=== PATIENT | male | born 1955 | race Two or more races ===

== ENCOUNTER 2024-01-15 07:44 | Emergency (ER) | payer OTHER ==
[~2024-01-15] VITALS: Ht 165.1 cm; Wt 84.9 kg
[2024-01-15 08:22] LABS: Urine Bacteria None Seen /hpf (None Seen)
[2024-01-15 08:29] LABS: Basophils # (auto) 0.1 10 ^3/uL (0-0.2); Basophils % (auto) 0.7 % (0.0-2.0); Eosinophils # (auto) 0.2 10 ^3/uL (0-0.8); Eosinophils % (auto) 2.9 % (0.0-7.0); Hematocrit 50.6 % (41.0-53.0); Hemoglobin 17.5 g/dL (13.5-17.5); Lymphocytes # (auto) 1.8 10 ^3/uL (0.4-5.4); Lymphocytes % (auto) 22.6 % (10.0-50.0); Mean Corpuscular Hemoglobin 32.8 pg (28.0-32.0); Mean Corpuscular Hgb Conc. 34.6 g/dL (32.0-36.0); Mean Corpuscular Volume 94.8 fL (80.0-100.0); Monocytes # (auto) 0.7 10 ^3/uL (0-1.3); Monocytes % (auto) 8.7 % (0.0-12.0); Neutrophils # (auto) 5.3 10 ^3/uL (1.6-8.6); Neutrophils % (auto) 65.1 % (37.0-80.0); Nucleated Red Blood Cells % 0.1 %; Platelet Count (auto) 269 10^3/uL (140-450); Red Blood Cells 5.33 10^6/uL (4.5-5.90); White Blood Cell 8.1 10^3/uL (4.4-10.8)
[2024-01-15 08:42] LABS: Urine Blood Negative /uL (Negative); Urine Clarity Clear (Clear); Urine Color Yellow (Yellow); Urine Hyaline Cast FEW /lpf (0 - 2); Urine Mucus FEW (None Seen); Urine Protein, UAD 1+ (Negative); Urine Specific Gravity 1.026 (1.001-1.035); Urine Urobilinogen Normal (Negative); Urine WBC 1 /hpf (0 - 3); Urine pH 5.5 (5.0-9.0)
[2024-01-15 08:46] LABS: Alanine Aminotransferase 40 U/L (7-40); Alkaline Phosphatase 109 U/L (46-116); Calcium 9.8 mg/dL (8.7-10.4); Chloride 106 mmol/L (98-107)
[2024-01-15 08:47] LABS: Albumin 5.1 g/dL (3.2-4.8); Anion Gap 6 (5-15); Aspartate Aminotransferase 22 U/L (13-40); BUN/Creatinine Ratio 18.2 (10.0-20.0); Bilirubin, Total 0.6 mg/dL (0.2-1.0); Blood Urea Nitrogen 16 mg/dL (9-23); Carbon Dioxide 25 mmol/L (20-31); Glucose 122 mg/dL (74-106); Potassium 3.8 mmol/L (3.5-5.1); Sodium 137 mmol/L (136-145); Total Protein 8.1 g/dL (5.7-8.2)
[2024-01-15 10:22] LABS: Acetaminophen < 2.0 UG/ML (10.0-20.0)
[2024-01-15 10:40] LABS: Salicylate < 3.0 mg/dL (-30)
[2024-01-15 11:18] VITALS: BP 134/85; TEMP 97.8
[2024-01-15 11:24] VITALS: PULSE 66; RESP 14; O2SAT 97
== END 2024-01-15 11:30 | disposition home or self-care (01) ==
LOC: ER 07:44
DX: K52.9 Noninfective gastroenteritis and colitis, unspecified (principal); T36.3X5A Adverse effect of macrolides, initial encounter; T50.4X5A Adverse effect of drugs affecting uric acid metabolism, initial encounter; M10.9 Gout, unspecified; Z88.1 Allergy status to other antibiotic agents; Y92.89 Other specified places as the place of occurrence of the external cause
CPT/HCPCS: 36415; 80053; 80329; 81001; 85025